=== PATIENT | female | born 1970 | race American Indian/Alaskan Native ===

== ENCOUNTER 2017-04-25 17:45 | Emergency (ER) | payer BC ==
--- NOTE | 2017-04-25 19:20 | Emergency Department Report ---
Chief Complaint: Abdominal Pain Stated Complaint: SENT BY PCP - HPI History of Present Illness: 46-year-old female past medical history none presents with complaint of lower abdominal pain sharp/crampy and intermittent in nature for 1 week. Patient states she has had some intermittent vaginal bleeding. Patient sent by primary care provider to rule out ectopic as patient is currently with lower abdominal pain which has been intermittently intense. Patient states she had episode of syncope 3 days ago. Patient is awake alert and oriented 3. Denies chest pain shortness of breath. - ROS Review of Systems: LMP within the last month, 1 week of intermittent suprapubic pain and intermittent bleeding. - Exam Vital Signs: Vital Signs 04/25/17 18:50 Temperature 98.2 F Pulse Rate 69 Respiratory 16 Rate Blood Pressure 109/75 O2 Sat by Pulse 98 Oximetry Physical Exam: Positive suprapubic pain on palpation, heart S1-S2 MSE screening note: Focused history and physical exam performed. Due to findings the following was ordered: Screening Assessment/Plan/Differential Dx: Abdominal pain and 1- This initial assessment/diagnostic orders/clinical plan/ treatment(s) is/are subject to change based on pt's health status, clinical progression and re- assessment by fellow clinical providers in the ED. Further treatment and workup at subsequent clinical provers discretion. Patient/guardians urged not to elope from ED as their condition may be serious if not clinically assessed and managed. 2-pelvic ultrasound, urinalysis, basic labs 3-patient to be seen in the ED by physician, I informed charge rn Cole about scenario ED Disposition for MSE Condition: Stable Instructions: Abdominal Pain (ED)
[2017-04-25 19:38] LABS: BUN/Creatinine Ratio 19; Blood Urea Nitrogen 13 mg/dL (7-17); Calcium 8.8 mg/dL (8.4-10.2); Hemolysis Index 8
[2017-04-25 19:45] LABS: Hematocrit 42.1 % (30.3-42.9); Hemoglobin 14.8 gm/dl (10.1-14.3); Mean Corpuscular HGB Conc 35 % (30-34); Mean Corpuscular Hemoglobin 35 pg (28-32); Mean Corpuscular Volume 101 fl (79-97); Platelet Count 382 K/mm3 (140-440); Red Blood Count 4.18 M/mm3 (3.65-5.03); Red Cell Distribution Width 13.6 % (13.2-15.2)
[2017-04-25 20:13] LABS: Bacteria,Urine 1+ /HPF (Negative); Bilirubin,Urine NEG (Negative); Blood,Urine NEG (Negative); Color,Urine Yellow (Yellow); Mucus,Urine 2+ /HPF; Nitrite,Urine NEG (Negative); Protein,Urine <15 mg/dL mg/dL (Negative); Urobilinogen,Urine < 2.0 mg/dL (<2.0)
[2017-04-25 21:10] VITALS: BP 106/69
[2017-04-25 23:08] LABS: HCG Qualitative,Urine Negative (Negative)
== END 2017-04-25 23:52 | disposition left against medical advice (07) ==
LOC: ED 17:45
DX: Z53.21 Procedure and treatment not carried out due to patient leaving prior to being seen by health care provider (principal)
CPT/HCPCS: 36415; 80048; 81001; 81025; 84702; 85025; 86850; 86900; 86901; 87086

== ENCOUNTER 2018-12-05 21:58 | Emergency (ER) | payer BC ==
[2018-12-06] MEDS ORDERED: DECADRON IM ONE (04:00)
[2018-12-06] MEDS ORDERED: NORCO 7.5/325 PO ONE (04:00)
[2018-12-06] MEDS ORDERED: ZOFRAN ODT PO ONE (04:04)
--- NOTE | 2018-12-06 05:10 | Emergency Department Report ---
ED General Adult HPI - General Chief complaint: Headache Stated complaint: SHARP PAIN IN HEAD, TOOTHACHE, NECK PAIN Source: patient Mode of arrival: Ambulatory Limitations: No Limitations - History of Present Illness Initial comments: Patient is a 48-year-old [place] female with a history of hypertension who presents to the ED with a complaint of severe headache and left mandibular premolar toothache for the last 2 days. Patient states that the pain is worse in the last 12 hours and that she has not been able to sleep because of severe pain. The patient states that the pain radiates from left mandible to her left temporal area with excruciating pain. Patient denies nausea, vomiting, dizziness, syncope, chest pain, shortness of breath, sore throat, nasal and sinus congestion or hearing loss, change in vision or fever and chills. MD Complaint: dental pain; headache -: Sudden, days(s) (2) Location: head, face, mouth Radiation: neck Severity scale (0 -10): 7 Quality: aching, sharp Consistency: intermittent Improves with: none Worsens with: none Associated Symptoms: denies other symptoms, headaches. denies: confusion, chest pain, cough, diaphoresis, loss of appetite, malaise, nausea/vomiting, seizure, shortness of breath, syncope, weakness Treatments Prior to Arrival: NSAID - Related Data Home Medications Medication Instructions Recorded Confirmed Last Taken Gabapentin 400 mg PO PRN 06/18/14 06/18/14 Unknown Previous Rx's Medication Instructions Recorded Last Taken Type Butalb/Acetaminophen/Caffeine 1 each PO Q4H PRN #16 capsule 06/18/14 06/18/14 Rx [Fioricet 50-300-40 mg Capsule] Promethazine [Phenergan] 25 mg PO Q6H PRN #10 tablet 06/18/14 06/18/14 Rx HYDROcodone/APAP 5-325 [[place] 1 each PO Q6HR PRN #20 tablet 06/19/14 Unknown Rx 5/325] SUMAtriptan succinate [Imitrex] 50 mg PO Q2H PRN #20 tablet 06/19/14 Unknown Rx Cyclobenzaprine [Flexeril 10 MG 10 mg PO TID PRN #20 tablet 11/03/14 Unknown Rx TAB] HYDROcodone/APAP 5-325 [[place] 1 each PO Q4HR PRN #20 tablet 11/03/14 Unknown Rx 5-325 mg TAB] Ibuprofen [Motrin 800 MG tab] 800 mg PO Q8HR PRN #30 tablet 11/03/14 Unknown Rx Acetaminophen/Codeine [Tylenol #3] 1 tab PO Q6H PRN #15 tab 01/15/15 Unknown Rx Cyclobenzaprine [Flexeril 10 MG 10 mg PO TID PRN #12 tablet 01/15/15 Unknown Rx TAB] Acetaminophen/Codeine [Tylenol 1 tab PO Q6H PRN #12 tab 12/06/18 Unknown Rx /Codeine # 3 tab] Clindamycin [Clindamycin CAP] 300 mg PO Q8HR #60 capsule 12/06/18 Unknown Rx Ibuprofen [Motrin 800 MG tab] 800 mg PO Q8HR PRN #20 tablet 12/06/18 Unknown Rx Prednisone [predniSONE 10 mg 10 mg PO .TAPER #1 tab.ds.pk 12/06/18 Unknown Rx (6-Day Pack, 21 Tabs)] Allergies Allergy/AdvReac Type Severity Reaction Status Date / Time ketorolac tromethamine AdvReac Unknown Verified 11/03/14 15:19 [From Toradol] ED Review of Systems ROS: Stated complaint: SHARP PAIN IN HEAD, TOOTHACHE, NECK PAIN Other details as noted in HPI Constitutional: denies: chills, fever Eyes: denies: eye pain, eye discharge, vision change ENT: dental pain. denies: ear pain, throat pain Respiratory: denies: cough, shortness of breath, wheezing Cardiovascular: denies: chest pain, palpitations Endocrine: no symptoms reported Gastrointestinal: denies: abdominal pain, nausea, diarrhea Genitourinary: denies: urgency, dysuria, discharge Musculoskeletal: denies: back pain, joint swelling, arthralgia Skin: denies: rash, lesions Neurological: headache. denies: weakness, paresthesias Psychiatric: denies: anxiety, depression Hematological/Lymphatic: denies: easy bleeding, easy bruising ED Past Medical Hx - Past Medical History Previous Medical History?: Yes Hx Headaches / Migraines: Yes (infreq) - Surgical History Past Surgical History?: Yes Additional Surgical History: tubal ligation - Social History Smoking Status: Current Every Day Smoker Substance Use Type: None - Medications Home Medications: Home Medications Medication Instructions Recorded Confirmed Last Taken Type Butalb/Acetaminophen/Caffeine 1 each PO Q4H PRN #16 capsule 06/18/14 06/18/14 06/18/14 Rx [Fioricet 50-300-40 mg Capsule] Gabapentin 400 mg PO PRN 06/18/14 06/18/14 Unknown History Promethazine [Phenergan] 25 mg PO Q6H PRN #10 tablet 06/18/14 06/18/14 06/18/14 Rx HYDROcodone/APAP 5-325 [[place] 1 each PO Q6HR PRN #20 tablet 06/19/14 Unknown Rx 5/325] SUMAtriptan succinate [Imitrex] 50 mg PO Q2H PRN #20 tablet 06/19/14 Unknown Rx Cyclobenzaprine [Flexeril 10 MG 10 mg PO TID PRN #20 tablet 11/03/14 Unknown Rx TAB] HYDROcodone/APAP 5-325 [[place] 1 each PO Q4HR PRN #20 tablet 11/03/14 Unknown Rx 5-325 mg TAB] Ibuprofen [Motrin 800 MG tab] 800 mg PO Q8HR PRN #30 tablet 11/03/14 Unknown Rx Acetaminophen/Codeine [Tylenol #3] 1 tab PO Q6H PRN #15 tab 01/15/15 Unknown Rx Cyclobenzaprine [Flexeril 10 MG 10 mg PO TID PRN #12 tablet 01/15/15 Unknown Rx TAB] Acetaminophen/Codeine [Tylenol 1 tab PO Q6H PRN #12 tab 12/06/18 Unknown Rx /Codeine # 3 tab] Clindamycin [Clindamycin CAP] 300 mg PO Q8HR #60 capsule 12/06/18 Unknown Rx Ibuprofen [Motrin 800 MG tab] 800 mg PO Q8HR PRN #20 tablet 12/06/18 Unknown Rx Prednisone [predniSONE 10 mg 10 mg PO .TAPER #1 tab.ds.pk 12/06/18 Unknown Rx (6-Day Pack, 21 Tabs)] ED Physical Exam - General Limitations: No Limitations General appearance: alert, in no apparent distress - Head Head exam: Present: atraumatic, normocephalic, normal inspection - Eye Eye exam: Present: normal appearance, PERRL, EOMI Pupils: Present: normal accommodation - ENT ENT exam: Present: normal exam, mucous membranes moist, TM's normal bilaterally, normal external ear exam, other (swollen left mandibular gums with diffuse dental caries and tenderness) - Neck Neck exam: Present: normal inspection, full ROM, lymphadenopathy. Absent: tenderness, meningismus - Respiratory Respiratory exam: Present: normal lung sounds bilaterally. Absent: respiratory distress, chest wall tenderness, decreased breath sounds - Cardiovascular Cardiovascular Exam: Present: regular rate, normal rhythm, normal heart sounds. Absent: systolic murmur, diastolic murmur, rubs, gallop - GI/Abdominal GI/Abdominal exam: Present: soft, normal bowel sounds. Absent: tenderness, guarding, rebound, hyperactive bowel sounds, organomegaly - Rectal Rectal exam: Present: deferred - Extremities Exam Extremities exam: Present: normal inspection, full ROM, normal capillary refill - Back Exam Back exam: Present: normal inspection, full ROM. Absent: tenderness, CVA tenderness (R), CVA tenderness (L), muscle spasm, paraspinal tenderness - Neurological Exam Neurological exam: Present: alert, oriented X3, CN II-XII intact, normal gait, reflexes normal - Psychiatric Psychiatric exam: Present: normal affect, normal mood - Skin Skin exam: Present: warm, dry, intact, normal color. Absent: rash ED Course Vital Signs 12/05/18 12/06/18 23:18 04:34 Temperature 98.5 F Pulse Rate 78 Respiratory 16 16 Rate Blood Pressure 132/78 O2 Sat by Pulse 98 Oximetry - Reevaluation(s) Reevaluation #1: 12/06/18 05:13 Patient is alert and oriented 3 and is not in distress. Patient was treated for pain in the ED and discharged home on medications. Patient is advised to follow-up with a dentist or primary care physician in 7-10 days for reevaluation or return to the ED immediately if symptoms get worse. ED Medical Decision Making - Medical Decision Making Patient is alert and oriented 3 and is not in distress. Patient was treated for pain in the ED and discharged home on medications. Patient is advised to follow-up with a dentist or primary care physician in 7-10 days for reevaluation or return to the ED immediately if symptoms get worse. - Differential Diagnosis denatl abscess; dental caries, headache, gingivitis Critical care attestation.: If time is entered above; I have spent that time in minutes in the direct care of this critically ill patient, excluding procedure time. ED Disposition Clinical Impression: Dental abscess, Dental caries, Acute gingivitis Tension type headache Qualifiers: Headache chronicity pattern: acute headache Intractability: not intractable Qualified Code(s): G44.209 - Tension-type headache, unspecified, not intractable Disposition: DC- TO HOME OR SELFCARE Is pt being admited?: No Does the pt Need Aspirin: No Condition: Stable Instructions: Dental Abscess (ED), Gingivitis (ED) Additional Instructions: Take medications with food, drink plenty of fluids and follow-up. Primary care physician in 7-10 days for reevaluation. Return to the ED immediately if symptoms get worse. Consider following up with a dentist for further evaluation. Prescriptions: Clindamycin [Clindamycin CAP] 300 mg PO Q8HR #60 capsule Ibuprofen [Motrin 800 MG tab] 800 mg PO Q8HR PRN #20 tablet PRN Reason: Pain Prednisone [predniSONE 10 mg (6-Day Pack, 21 Tabs)] 10 mg PO .TAPER #1 tab.ds.pk Acetaminophen/Codeine [Tylenol /Codeine # 3 tab] 1 tab PO Q6H PRN #12 tab PRN Reason: Pain Referrals: PRIMARY CARE, [Primary Care Provider] - 3-5 Days Time of Disposition: 05:08 Print Language: AZERI
[2018-12-06 05:53] VITALS: BP 130/74
== END 2018-12-06 05:15 | disposition home or self-care (01) ==
LOC: ED 21:58
DX: K04.7 Periapical abscess without sinus (principal); K02.9 Dental caries, unspecified; K05.00 Acute gingivitis, plaque induced; G44.209 Tension-type headache, unspecified, not intractable; G43.909 Migraine, unspecified, not intractable, without status migrainosus; F17.200 Nicotine dependence, unspecified, uncomplicated; Z98.51 Tubal ligation status; Z88.8 Allergy status to other drugs, medicaments and biological substances; Z79.899 Other long term (current) drug therapy
CPT/HCPCS: 96372; 99282; Q0162